=== PATIENT | female | born 1980 | race Two or more races ===

== ENCOUNTER 2016-05-05 18:43 | Emergency (ER) | payer OTHER ==
--- NOTE | ~2016-05-05 | EKG ---
PATIENT: SENAIT AVILA UNIT #: [id number] Ventricular Rate: 85 BPM Atrial Rate: 85 BPM P-R Interval: 150 ms QRS Duration: 90 ms Q-T Interval: 362 ms QTC Calculation(Bezet): 430 ms P [place]: 38 degrees Calculated R [place]: 17 degrees Calculated T [place]: 11 degrees Diagnosis Line: Normal sinus rhythm Diagnosis Line: Nonspecific T wave abnormality Poor R wave Diagnosis Line: progression questionable lead position or body Diagnosis Line: habitus Baseline wander Diagnosis Line: Otherwise normal ECG Diagnosis Line: No previous ECGs available Diagnosis Line: Confirmed by KAYLAN WANG MD ([id number]) on 05/09/2016 Diagnosis Line: 10:40:43 PM INTERPRETING MD: KATHLEEN AGUIRRE
--- NOTE | ~2016-05-05 | CR72 ---
[facility] A Service of [facility] RADIOLOGY TEXT RESULTS PATIENT: SENAIT AVILA LOCATION: [facility] : 84 UNIT #: [id number] AGE: [address]: Octavio Kelley MD SEX: F ORDER DR: [id number] [facility] [address] [place], [place] [address] [id number] E MR#: [id number] Acc #: [id number] NAME: SENAIT AVILA : 1980 SEX: F STUDY DATE/TIME: 05/05/2016 18:27 UNIT: [facility] ROOM: STUDY DESCRIPTION: CR Chest Single View Portable Attending Physician: Octavio Kelley M.D. Ordering Physician: Octavio Kelley M.D. Primary Care Physician: Primary Care Physician No MEDICAL IMAGING REPORT This report is preliminary unless electronic signature is present EXAM AP portable chest radiograph, 05/05/2016 HISTORY SUPPLIED Headache, chest pain, cough for 4 days. FINDINGS An AP view is obtained. The cardiovascular configuration of the chest remains normal and the lungs are clear. CONCLUSION Negative portable chest. Dictated by... Luis Carlos Lemus M.D. THIS IS AN ELECTRONICALLY VERIFIED REPORT Luis Carlos Lemus M.D. at 05/09/2016 2:45 PM FELICIA/claritza TD: 05/05/2016 22:05 JOB #: [id number] MEDICAL IMAGING REPORT Page 1 of 1 COPY
--- NOTE | ~2016-05-05 | CT71 ---
[facility] A Service [facility] RADIOLOGY TEXT RESULTS PATIENT: SENAIT AVILA LOCATION: [facility] : 84 UNIT #: [id number] AGE: [address]: Octavio Kelley MD SEX: F ORDER DR: [id number] [address] [place], [place] [address] [id number] E MR#: [id number] Acc #: [id number] NAME: SENAIT AVILA : 1980 SEX: F STUDY DATE/TIME: 05/05/2016 19:05 UNIT: [facility] [employer] ROOM: STUDY DESCRIPTION: CT Head Wo Contrast Attending Physician: Octavio Kelley M.D. Ordering Physician: Octavio Kelley M.D. Primary Care Physician: No Primary Care Physician MEDICAL IMAGING REPORT This report is preliminary unless electronic signature is present EXAM Noncontrast head CT HISTORY Headaches times 3 days, dizziness, vomiting, blurred vision TECHNIQUE This CT exam was performed with one or more of the following radiation dose reduction techniques: automatic exposure control, adjustment of mA and/or kV according to patient size, and iterative reconstruction. FINDINGS Axial noncontrast imaging brain demonstrates the brain parenchyma to be normal. No mass, mass effect or midline shift. No hemorrhage or abnormal extraaxial fluid collections. Chronic right maxillary sinus mucosal disease. Mastoids, skull base unremarkable. IMPRESSION No acute intracranial abnormality identified. Dictated by... Oscar Coles M.D. THIS IS AN ELECTRONICALLY VERIFIED REPORT Oscar Coles M.D. at 05/06/2016 2:38 PM LUCAS/jasmin TD: 05/05/2016 22:48 [facility] A Service [facility] RADIOLOGY TEXT RESULTS PATIENT: SENAIT AVILA LOCATION: [facility] : 84 UNIT #: [id number] AGE: [address]: Octavio Kelley MD SEX: F ORDER DR: JOB #: [id number] MEDICAL IMAGING REPORT Page 1 of 1 COPY
[2016-05-05 18:46] LABS: URINE SOURCE CLEAN CATCH
[2016-05-05 18:50] LABS: POC - CKMB <1.0 ng/mL (0.0-7.9); POC - TROPONIN <0.05 ng/mL (<=0.05)
[2016-05-05 18:55] LABS: BASOPHIL% 0.4 % (0-2.5); DIFF IND NO; EOSINOPHIL# 0.2 X10e3 (0-0.7); EOSINOPHIL% 2.5 % (0.0-7.0); HEMATOCRIT 38.8 % (35.0-45.0); HEMOGLOBIN 12.5 gm/dL (12.0-16.0); LYMPHOCYTE# 2.4 X10e3 (1.0-3.5); LYMPHOCYTE% 27.5 % (17.0-45.0); MEAN CELL VOLUME 78.4 FL (83-96); MEAN CORPUSCULAR HEMOGLOBIN 25.3 PG (28-34); MEAN CORPUSCULAR HGB CONC 32.3 g/dL (30-36); MEAN PLATELET VOLUME 8.8 FL (6.5-11.5); MONOCYTE# 0.5 X10e3 (0-1.0); MONOCYTE% 5.7 % (3.0-12.0); NEUTROPHIL# 5.6 X10e3 (1.5-7.1); NEUTROPHIL% 63.9 % (40-75); PLATELET COUNT 255 X10e3 (140-420); RED BLOOD COUNT 4.95 X10e (3.90-5.30); RED CELL DISTRIBUTION WIDTH 12.8 % (11.0-15.5); WHITE BLOOD COUNT 8.8 X10e3 (4.0-10.5)
[2016-05-05 18:55] LABS: URINE APPEARANCE CLEAR; URINE BILIRUBIN NEG (NEG); URINE BLOOD NEG (NEG); URINE COLOR YELLOW; URINE GLUCOSE NEG (NEG); URINE KETONE NEG (NEG); URINE LEUKOCYTE ESTERASE NEG (NEG); URINE NITRATE NEG (NEG); URINE PROTEIN NEG (NEG); URINE SPECIFIC GRAVITY 1.007 (1.003-1.035); URINE UROBILINOGEN 0.2 MG/DL (NEG)
[2016-05-05 18:57] LABS: CULTURE INDICATED? NO
[2016-05-05 19:01] LABS: INFLUENZA A NEG (NEG); INFLUENZA B NEG (NEG)
[2016-05-05 19:19] LABS: ALBUMIN SERUM 4.5 g/dL (3.5-5.0); BILIRUBIN, DIRECT 0.1 mg/dL (0.0-0.2); BILIRUBIN,INDIRECT 0.7 mg/dL (0.0-0.9); BILIRUBIN,TOTAL 0.8 mg/dL (0.2-2.0); CALCIUM SERUM 8.5 mg/dL (8.4-10.2); CREATININE SERUM 0.3 mg/dL (0.6-1.4); GLOM FILT RATE Estimated 149.4 mL/min (>60); POTASSIUM 3.4 mmol/L (3.5-5.1); PROTEIN TOTAL SERUM 7.7 g/dL (6.0-8.3)
== END 2016-05-05 20:00 | disposition home or self-care (01) ==
LOC: CED 18:43
PROVIDERS: Emergency Medicine
DX: R51 Headache (principal); M79.1 Myalgia
CPT/HCPCS: 36415; 70450; 71010; 80048; 80076; 81003; 82553; 84484; 84703; 85025; 87804; 93005; 96361; 96374; 99284; J1885

== ENCOUNTER 2016-09-14 21:20 | Emergency (ER) | payer OTHER ==
--- NOTE | ~2016-09-14 | CT4 ---
[facility] A Service of [facility] RADIOLOGY TEXT RESULTS PATIENT: SENAIT AVILA LOCATION: [facility] : 84 UNIT #: [id number] AGE: [address]: Gladis Cardenas MD SEX: F ORDER DR: [id number] [facility] [address] [place], [place] [address] [id number] E MR#: [id number] Acc #: [id number] NAME: SENAIT AVILA : 1980 SEX: F STUDY DATE/TIME: 09/14/2016 23:31 UNIT: [facility] ROOM: STUDY DESCRIPTION: CT Abd and Pelv Wo Cont Attending Physician: Gladis Cardenas M.D. Ordering Physician: Gladis Cardenas M.D. Primary Care Physician: Isaak Mann M.D. MEDICAL IMAGING REPORT This report is preliminary unless electronic signature is present EXAM CT abdomen and pelvis without contrast DATE 09/14/2016 HISTORY Right lower abdominal pain for 2 weeks with vomiting, chills, headache and stomach pain. COMPARISON CT abdomen and pelvis with contrast 02/02/2015. PROCEDURE 3 mm noncontrast axial images through the abdomen and pelvis. Enteric contrast was not administered. Sagittal and coronal reformatted images were obtained. This CT exam was performed with one or more of the following radiation dose reduction techniques: Automatic exposure control, adjustment of mA and/or kV according to patient size, and iterative reconstruction. FINDINGS There is marked diffuse hepatic steatosis with geographic areas of fatty sparing. Cholecystectomy changes are present. Liver is enlarged measuring up to 22 cm craniocaudally, similar to prior exam. The spleen, pancreas, adrenals and kidneys are within normal limits. No urinary tract stone or hydronephrosis is seen. There is laxity of the rectus abdominis musculature, but no gross hernia is identified. Appendix is normal. Limited evaluation of bowel due to lack of enteric contrast but no focal bowel inflammation is seen. No free air or free fluid is evident. PELVIS FINDINGS: Uterus is anteverted. Urinary bladder is decompressed. [facility] A Service of [facility] RADIOLOGY TEXT RESULTS PATIENT: SENAIT AVILA LOCATION: [facility] #: [id number] : [birth year] UNIT #: [id number] AGE: [address]: Gladis Cardenas MD SEX: F ORDER DR: Rectum appears normal. No pelvic free fluid or adenopathy is identified. No acute osseous abnormalities are identified. Lung bases are clear. IMPRESSION 1. No acute findings in the abdomen or pelvis. 2. Marked hepatomegaly with diffuse hepatic steatosis, similar to 02/02/2015. 3. The appendix is normal. 4. No urinary tract stone or hydronephrosis is seen. 5. Cholecystectomy. Dictated by... Romi Sutherland M.D. THIS IS AN ELECTRONICALLY VERIFIED REPORT Romi Sutherland M.D. at 09/15/2016 9:49 PM BRIDGET/mir TD: 09/15/2016 01:30 JOB #: [id number] MEDICAL IMAGING REPORT Page 1 of 1 COPY
[2016-09-14 23:08] LABS: BASOPHIL# 0.1 X10e3 (0-0.3); BASOPHIL% 0.6 % (0-2.5); EOSINOPHIL# 0.3 X10e3 (0-0.7); EOSINOPHIL% 2.8 % (0.0-7.0); HEMATOCRIT 36.7 % (35.0-45.0); HEMOGLOBIN 11.9 gm/dL (12.0-16.0); LYMPHOCYTE# 5.2 X10e3 (1.0-3.5); LYMPHOCYTE% 46.2 % (17.0-45.0); MEAN CELL VOLUME 77.5 FL (83-96); MEAN CORPUSCULAR HEMOGLOBIN 25.1 PG (28-34); MEAN CORPUSCULAR HGB CONC 32.4 g/dL (30-36); MEAN PLATELET VOLUME 8.6 FL (6.5-11.5); MONOCYTE# 0.7 X10e3 (0-1.0); MONOCYTE% 6.3 % (3.0-12.0); NEUTROPHIL% 44.1 % (40-75); PLATELET COUNT 296 X10e3 (140-420); RED BLOOD COUNT 4.74 X10e (3.90-5.30); RED CELL DISTRIBUTION WIDTH 12.9 % (11.0-15.5); WHITE BLOOD COUNT 11.3 X10e3 (4.0-10.5)
[2016-09-14 23:09] LABS: DIFF IND NO
[2016-09-14 23:33] LABS: URINE SOURCE CLEAN CATCH
[2016-09-14 23:36] LABS: ALBUMIN SERUM 4.3 g/dL (3.5-5.0); BILIRUBIN, DIRECT 0.1 mg/dL (0.0-0.2); BILIRUBIN,INDIRECT 0.2 mg/dL (0.0-0.9); BILIRUBIN,TOTAL 0.3 mg/dL (0.2-2.0); CALCIUM SERUM 9.1 mg/dL (8.4-10.2); CREATININE SERUM 0.5 mg/dL (0.6-1.4); GLOM FILT RATE Estimated 126.3 mL/min (>60); POTASSIUM 3.8 mmol/L (3.5-5.1); PROTEIN TOTAL SERUM 7.7 g/dL (6.0-8.3)
[2016-09-14 23:41] LABS: URINE BILIRUBIN NEG (NEG); URINE BLOOD NEG (NEG); URINE GLUCOSE NORM (NORM); URINE KETONE NEG (NEG); URINE LEUKOCYTE ESTERASE NEG (NEG); URINE NITRATE NEG (NEG); URINE PROTEIN 1+ (NEG); URINE UROBILINOGEN NORM (NORM)
[2016-09-14 23:53] LABS: URINE APPEARANCE CLEAR; URINE COLOR YELLOW
[2016-09-14 23:54] LABS: CULTURE INDICATED? NO; URBCS1 AUWI 0-2 /[HPF] (0-2); URINE SQUAMOUS EPITHELIAL CELL MOD /[HPF]
== END 2016-09-15 01:44 | disposition home or self-care (01) ==
LOC: CED 21:20
PROVIDERS: Emergency Medicine
DX: R10.11 Right upper quadrant pain (principal); R10.31 Right lower quadrant pain
CPT/HCPCS: 36415; 74176; 80048; 80076; 81003; 82150; 83690; 84703; 85025; 96372; 99284; J1885